=== PATIENT | female | born 1990 | race Two or more races ===

== ENCOUNTER 2023-04-20 18:16 | Emergency (ER) | payer MEDICAID, OTHER ==
[~2023-04-20] VITALS: Ht 162.6 cm; Wt 91.1 kg
[2023-04-20 18:48] LABS: Basophils # (auto) 0.1 10 ^3/uL (0-0.2); Basophils % (auto) 0.7 % (0.0-2.0); Eosinophils # (auto) 0.3 10 ^3/uL (0-0.8); Hematocrit 43.7 % (36.0-46.0); Hemoglobin 14.4 g/dL (12.2-16.2); Lymphocytes # (auto) 4.4 10 ^3/uL (0.4-5.4); Lymphocytes % (auto) 39.5 % (10.0-50.0); Mean Corpuscular Hemoglobin 29.6 pg (28.0-32.0); Mean Corpuscular Volume 89.8 fL (80.0-100.0); Monocytes # (auto) 0.8 10 ^3/uL (0-1.3); Monocytes % (auto) 7.4 % (0.0-12.0); Neutrophils # (auto) 5.5 10 ^3/uL (1.6-8.6); Neutrophils % (auto) 49.4 % (37.0-80.0); Nucleated Red Blood Cells % 0.1 %; Red Blood Cells 4.86 10^6/uL (4.0-5.20); Red Cell Distribution Width 13.1 % (11.8-14.3); White Blood Cell 11.1 10^3/uL (4.4-10.8)
[2023-04-20 18:52] LABS: Urine Bacteria NONE SEEN /hpf (None Seen); Urine Blood Negative /uL (Negative); Urine Clarity Clear (Clear); Urine Color Colorless (Yellow); Urine Protein, UAD Negative (Negative); Urine Specific Gravity 1.022 (1.001-1.035); Urine Urobilinogen Normal (Negative); Urine WBC 1 /hpf (0 - 5); Urine pH 6.5 (5.0-8.0)
[2023-04-20 19:02] LABS: Alanine Aminotransferase 18 U/L (7-40); Albumin 4.8 g/dL (3.2-4.8); Alkaline Phosphatase 78 U/L (46-116); Anion Gap 5 (5-15); Aspartate Aminotransferase 14 U/L (13-40); BUN/Creatinine Ratio 14.7 (10.0-20.0); Blood Urea Nitrogen 10 mg/dL (9-23); Calcium 9.4 mg/dL (8.5-10.1); Carbon Dioxide 30 mmol/L (20-30); Chloride 103 mmol/L (98-107); Glucose 87 mg/dL (74-106); Potassium 4.1 mmol/L (3.5-5.1); Sodium 138 mmol/L (136-145)
[2023-04-20 19:03] LABS: Bilirubin, Total 0.2 mg/dL (0.2-1.0); Total Protein 8.1 g/dL (5.7-8.2)
[2023-04-21 00:45] VITALS: BP 117/63; TEMP 98.5
[2023-04-21] MEDS ORDERED: HYDROcodone-ACET 5/325MG TAB PO ONE (00:45)
[2023-04-21 00:46] VITALS: PULSE 53; RESP 16; O2SAT 99
== END 2023-04-21 00:48 | disposition home or self-care (01) ==
LOC: ER 18:16
DX: R10.31 Right lower quadrant pain (principal)
CPT/HCPCS: 36415; 74176; 80053; 81001; 85025